=== PATIENT | female | born 1955 | race Caucasian/White ===

== ENCOUNTER 2017-02-13 20:48 | Inpatient (IN) | payer OTHER ==
[~2017-02-13] VITALS: Ht 165.1 cm; Wt 86.6 kg
[~2017-02-13 20:48] MED LIST: CELEXA40 MG PO; FENOFIBRATE54 M1 PO; FORTAMET500 M1 PO; GLIMEPIRIDE1 MG PO; JANUVIA100 MG PO; JANUVIA25 MG PO; LIORESAL5 MG PO; NAPROSYN500 MG PO; NORCO 5/3251 TABLET PO; PRAVASTATIN SOD20 MG PO; TRAZODONE HCL50 MG PO; VALIUM5 MG PO; WELLBUTRIN75 MG PO
[2017-02-13 21:59] LABS: HEMATOCRIT 44.3 % (36.0-46.0); HEMOGLOBIN 15.1 G/DL (11.9-15.5); MCH 29.7 PG (29.0-34.0); MCHC 34.1 G/DL (30.0-36.0); PLATELET COUNT 288 K/uL (156-360); RBC DIS.WIDTH-SD 44.6 % (39-53); RED BLOOD COUNT 5.09 M/uL (3.80-5.20)
[2017-02-13 22:07] LABS: ALBUMIN 4.2 g/dL (3.2-4.8)
[2017-02-13 22:08] LABS: CHLORIDE 104 mEq/L (99-109); POTASSIUM 3.3 mEq/L (3.7-5.4); SODIUM 141 mEq/L (136-147)
[2017-02-13 22:10] LABS: GLUCOSE 153 mg/dL (70-99)
[2017-02-13 22:12] LABS: TOTAL BILIRUBIN 0.6 mg/dL (0.0-1.0)
[2017-02-13 22:13] LABS: ALKALINE PHOSPHATASE 76 IU/L (3-129); SERUM ETHYL ALCOHOL 147 mg/dL
[2017-02-13 22:14] LABS: CREATININE 0.8 mg/dL (0.6-1.3); GFR ESTIMATE (CALCULATED) > 59 mL/min/
[2017-02-13 22:15] LABS: AST (GOT) 18 IU/L (2-34); UREA NITROGEN (BUN) 9 mg/dL (9-23)
[2017-02-13 22:17] LABS: ALT (GPT) 21 IU/L (3-49)
[2017-02-14 01:05] LABS: APPEARANCE CLEAR ((CLEAR)); BILIRUBIN NEGATIVE; BLOOD NEGATIVE; COLOR YELLOW ((YELLOW)); GLUCOSE (STRIP) NEGATIVE; KETONES NEGATIVE; LEUKOCYTES NEGATIVE; NITRITE NEGATIVE; PROTEIN (STRIP) NEGATIVE; SPECIFIC GRAVITY 1.009 (1.000-1.030); UROBILINOGEN 0.2 MG/DL (0.2-1.0)
[2017-02-14 01:14] LABS: AMPHETAMINE NEGATIVE (500 ng/mL); BARBITURATES NEGATIVE (200 ng/mL); BENZODIAZEPINES NEGATIVE (150 ng/mL); BUPRENORPHINE NEGATIVE (10 ng/mL); COCAINE NEGATIVE (150 ng/mL); METHADONE NEGATIVE (200 ng/mL); METHAMPHETAMINE NEGATIVE (500 ng/mL); OPIATES (MORPHINE) NEGATIVE (100 ng/mL); OXYCODONE NEGATIVE (100 ng/mL); PHENCYCLIDINE NEGATIVE (25 ng/mL); PROPOXYPHENE NEGATIVE (300 ng/mL); THC CANNABINOIDS NEGATIVE (50 ng/mL); TRICYCLIC ANTIDEPRESSANTS NEGATIVE (300 ng/mL)
[2017-02-14 02:46] VITALS: BP 141/69
[2017-02-14] MEDS ORDERED: PIOGLITAZONE HC30 MG PO (04:25)
[2017-02-14] MEDS ORDERED: JANUVIA100 MG PO (04:27)
[2017-02-14] MEDS ORDERED: FENOFIBRATE54 M1 PO (04:29)
[2017-02-14] MEDS ORDERED: PRAVASTATIN SOD20 MG PO (04:31)
[2017-02-14] MEDS ORDERED: CITALOPRAM HBR40 MG PO (04:32)
[2017-02-14] MEDS ORDERED: METFORMIN HCL500 MG PO (04:34)
[2017-02-14 07:37] VITALS: BP 135/63
[2017-02-14 15:51] VITALS: BP 137/72
[2017-02-15 08:08] VITALS: BP 137/81
[2017-02-15 15:23] VITALS: BP 122/63
[2017-02-16 07:24] VITALS: BP 119/66
[2017-02-16] MEDS ORDERED: TRAZODONE HCL50 MG PO (10:16)
== END 2017-02-16 13:18 | disposition home or self-care (01) | DRG 880 ==
LOC: EME 20:48 → EDOF 02-14 01:09 → ENRESERV 02-14 02:00 → 1WEST 02-14 02:38
PROVIDERS: Emergency Medicine
DX: R45.851 Suicidal ideations (principal); F33.1 Major depressive disorder, recurrent, moderate; F10.229 Alcohol dependence with intoxication, unspecified; Z91.5 Personal history of self-harm; E11.9 Type 2 diabetes mellitus without complications; E78.5 Hyperlipidemia, unspecified; Z68.31 Body mass index [BMI] 31.0-31.9, adult; Z81.8 Family history of other mental and behavioral disorders; G47.00 Insomnia, unspecified
CPT/HCPCS: 80053; 81003; 85027; 90839; 99281; 99285; G0480

== ENCOUNTER 2017-07-10 19:40 | Inpatient (IN) | payer OTHER ==
[~2017-07-10] VITALS: Ht 152.4 cm; Wt 84.3 kg
[~2017-07-10 19:40] MED LIST changes: +CITALOPRAM HBR40 MG PO; +METFORMIN HCL500 MG PO; +PIOGLITAZONE HC30 MG PO
[2017-07-10 19:57] LABS: HEMATOCRIT 40.9 % (36.0-46.0); HEMOGLOBIN 13.6 G/DL (11.9-15.5); MCH 28.6 PG (29.0-34.0); MCHC 33.3 G/DL (30.0-36.0); MCV 85.9 FL (83-99); PLATELET COUNT 303 K/uL (156-360); RBC DIS.WIDTH-CV 13.5 % (11.8-14.6); RBC DIS.WIDTH-SD 42.6 % (39-53); RED BLOOD COUNT 4.76 M/uL (3.80-5.20); WHITE BLOOD COUNT 9.5 K/uL (4.1-10.2)
[2017-07-10 20:06] LABS: CHLORIDE 103 mEq/L (99-109); SODIUM 139 mEq/L (136-147)
[2017-07-10 20:07] LABS: GLUCOSE 147 mg/dL (70-99)
[2017-07-10 20:10] LABS: POTASSIUM 3.4 mEq/L (3.7-5.4); SERUM ETHYL ALCOHOL 203 mg/dL
[2017-07-10 20:11] LABS: CREATININE 0.8 mg/dL (0.6-1.3); GFR ESTIMATE (CALCULATED) > 59 mL/min/
[2017-07-10 20:13] LABS: UREA NITROGEN (BUN) 11 mg/dL (9-23)
[2017-07-10 20:14] LABS: SALICYLATE < 5.0 MG/DL (15-30)
[2017-07-10 20:15] LABS: ACETAMINOPHEN (TYLENOL) < 10 mcg/mL (10-30)
[2017-07-10 22:11] LABS: AMPHETAMINE NEGATIVE (500 ng/mL); BARBITURATES NEGATIVE (200 ng/mL); BENZODIAZEPINES NEGATIVE (150 ng/mL); BUPRENORPHINE NEGATIVE (10 ng/mL); COCAINE NEGATIVE (150 ng/mL); METHADONE NEGATIVE (200 ng/mL); METHAMPHETAMINE NEGATIVE (500 ng/mL); OPIATES (MORPHINE) NEGATIVE (100 ng/mL); OXYCODONE NEGATIVE (100 ng/mL); PHENCYCLIDINE NEGATIVE (25 ng/mL); PROPOXYPHENE NEGATIVE (300 ng/mL); THC CANNABINOIDS NEGATIVE (50 ng/mL); TRICYCLIC ANTIDEPRESSANTS NEGATIVE (300 ng/mL)
[2017-07-11 15:05] VITALS: BP 159/85
[2017-07-11 15:10] VITALS: BP 159/85
[2017-07-12 07:52] VITALS: BP 137/77
[2017-07-12 16:34] VITALS: BP 129/76
[2017-07-13 07:46] VITALS: BP 132/72
[2017-07-13 17:07] VITALS: BP 118/77
[2017-07-14 08:02] VITALS: BP 119/71
[2017-07-14 16:09] VITALS: BP 136/63
[2017-07-15 07:51] VITALS: BP 130/66
[2017-07-15] MEDS ORDERED: TRAZODONE HCL50 MG PO (09:00)
[2017-07-15] MEDS ORDERED: CITALOPRAM HBR40 MG PO (09:00)
[2017-07-15] MEDS ORDERED: DIAZEPAM2 MG PO (09:00)
== END 2017-07-15 12:48 | disposition home or self-care (01) | DRG 885 ==
LOC: EME 19:40 → EDOF 07-11 14:06 → 1WEST 07-11 14:06 → ENRESERV 07-11 14:47 → 1WEST 07-11 14:56
DX: F33.9 Major depressive disorder, recurrent, unspecified (principal); R45.851 Suicidal ideations; F41.9 Anxiety disorder, unspecified; G47.00 Insomnia, unspecified; Y90.7 Blood alcohol level of 200-239 mg/100 ml; F10.129 Alcohol abuse with intoxication, unspecified; S61.512A Laceration without foreign body of left wrist, initial encounter; S61.511A Laceration without foreign body of right wrist, initial encounter; X78.8XXA Intentional self-harm by other sharp object, initial encounter; E11.9 Type 2 diabetes mellitus without complications; E66.01 Morbid (severe) obesity due to excess calories; G89.29 Other chronic pain; Y92.89 Other specified places as the place of occurrence of the external cause; Z63.4 Disappearance and death of family member; Z79.84 Long term (current) use of oral hypoglycemic drugs; Z91.14 Patient's other noncompliance with medication regimen; Z91.19 Patient's noncompliance with other medical treatment and regimen; Z68.36 Body mass index [BMI] 36.0-36.9, adult; Z81.1 Family history of alcohol abuse and dependence
CPT/HCPCS: 36415; 80048; 80053; 80061; 83036; 85027; 90837; 97150 GO; 97165 GO; 99281; 99285; G0480; J7030

== ENCOUNTER 2017-08-30 19:26 | Emergency (ER) | payer OTHER ==
[~2017-08-30] VITALS: Ht 154.9 cm; Wt 63.6 kg
[~2017-08-30 19:26] MED LIST changes: +DIAZEPAM2 MG PO
[2017-08-30 19:54] LABS: HEMATOCRIT 40.5 % (36.0-46.0); HEMOGLOBIN 13.4 G/DL (11.9-15.5); MCH 28.9 PG (29.0-34.0); MCHC 33.1 G/DL (30.0-36.0); MCV 87.3 FL (83-99); PLATELET COUNT 253 K/uL (156-360); RBC DIS.WIDTH-CV 14.5 % (11.8-14.6); RBC DIS.WIDTH-SD 46.3 % (39-53); RED BLOOD COUNT 4.64 M/uL (3.80-5.20); WHITE BLOOD COUNT 5.5 K/uL (4.1-10.2)
[2017-08-30 20:03] LABS: CHLORIDE 110 mEq/L (99-109); POTASSIUM 3.9 mEq/L (3.7-5.4); SODIUM 142 mEq/L (136-147)
[2017-08-30 20:05] LABS: GLUCOSE 140 mg/dL (70-99); TOTAL PROTEIN 6.4 g/dL (6.4-8.3)
[2017-08-30 20:07] LABS: TOTAL BILIRUBIN 0.6 mg/dL (0.0-1.0)
[2017-08-30 20:08] LABS: SERUM ETHYL ALCOHOL 142 mg/dL
[2017-08-30 20:09] LABS: ALKALINE PHOSPHATASE 72 IU/L (3-129); CREATININE 0.8 mg/dL (0.6-1.3); GFR ESTIMATE (CALCULATED) > 59 mL/min/
[2017-08-30 20:10] LABS: UREA NITROGEN (BUN) 12 mg/dL (9-23)
[2017-08-30 20:11] LABS: AST (GOT) 16 IU/L (2-34)
[2017-08-30 20:12] LABS: ACETAMINOPHEN (TYLENOL) < 10 mcg/mL (10-30); ALT (GPT) 15 IU/L (3-49)
[2017-08-30 20:34] LABS: AMPHETAMINE NEGATIVE (500 ng/mL); BARBITURATES NEGATIVE (200 ng/mL); BENZODIAZEPINES PRESUMPTIVE POSITIVE (150 ng/mL); BUPRENORPHINE NEGATIVE (10 ng/mL); COCAINE NEGATIVE (150 ng/mL); METHADONE NEGATIVE (200 ng/mL); METHAMPHETAMINE NEGATIVE (500 ng/mL); OPIATES (MORPHINE) NEGATIVE (100 ng/mL); OXYCODONE NEGATIVE (100 ng/mL); PHENCYCLIDINE NEGATIVE (25 ng/mL); PROPOXYPHENE NEGATIVE (300 ng/mL); THC CANNABINOIDS NEGATIVE (50 ng/mL); TRICYCLIC ANTIDEPRESSANTS NEGATIVE (300 ng/mL)
[2017-08-30 21:09] LABS: BENZODIAZEPINES, URINE SCREEN Negative (200 ng/mL)
[2017-08-30 21:16] LABS: SALICYLATE < 3.0 MG/DL (15-30)
[2017-08-30 23:55] VITALS: BP 112/56
== END 2017-08-30 23:56 | disposition home or self-care (01) ==
LOC: EME 19:26
PROVIDERS: Emergency Medicine
DX: F32.9 Major depressive disorder, single episode, unspecified (principal); F10.129 Alcohol abuse with intoxication, unspecified; Y90.6 Blood alcohol level of 120-199 mg/100 ml; T43.211A Poisoning by selective serotonin and norepinephrine reuptake inhibitors, accidental (unintentional), initial encounter; I44.4 Left anterior fascicular block; E11.9 Type 2 diabetes mellitus without complications; Z79.84 Long term (current) use of oral hypoglycemic drugs; Z88.8 Allergy status to other drugs, medicaments and biological substances
CPT/HCPCS: 80053; 84999; 85027; 90837; 93005; 99281; 99284; G0480